=== PATIENT | female | born 1965 ===

== ENCOUNTER → 2025-08-07 | Day surgery (SDC) | payer OTHER ==
[~2025-08-07] MED LIST: DIPHENHYDRAMINE HCL 50 MG/ML VIAL 1ML IV ONE; MIDAZOLAM HCL 2 MG/2 ML VIAL IV ONE; fentaNYL CITRATE 50 MCG/ML AMPUL IV PUSH ONE
== END | disposition home or self-care (01) ==
LOC: ADM 08-01 15:15 → CIR.AMB 07:00
PROVIDERS: ATTEND Internal Medicine
DX: D12.3 Benign neoplasm of transverse colon (principal); K63.5 Polyp of colon; K57.30 Diverticulosis of large intestine without perforation or abscess without bleeding; K52.89 Other specified noninfective gastroenteritis and colitis